=== PATIENT | female | born 1970 | race Two or more races ===

== ENCOUNTER 2016-08-16 21:53 | Emergency (ER) | payer OTHER ==
[~2016-08-16] VITALS: Ht 157.5 cm; Wt 64.4 kg
[~2016-08-16 21:53] MED LIST: KEFLEX500 MG ORAL; METRONIDAZOLE500 MG ORAL; PEPCID40 MG PO; RANITIDINE HCL150 MG ORAL; ZOFRAN4 MG ORAL
[2016-08-16 23:00] VITALS: BP 135/78
[2016-08-17 00:49] LABS: APPEARANCE,URINE CLEAR; KETONES,URINE NEGATIVE (NEGATIVE); LEUKOCYTE ESTERASE ,URINE NEGATIVE (NEGATIVE); NITRITE,URINE NEGATIVE (NEGATIVE); PH,URINE 6.5 (4.5-8.0); PROTEIN,URINE NEGATIVE (NEGATIVE); UROBILINOGEN,URINE NORMAL MG/DL (0.0-1.0)
[2016-08-17 00:59] LABS: SQUAMOUS EPITHELIAL CELL,UR FEW /LPF (NONE/OCC); WBC,URINE 0-2 /HPF (0 - 2)
[2016-08-17] MEDS ORDERED: ZOFRAN4 MG ORAL (01:22)
--- NOTE | 2016-08-17 01:23 | Emergency Room Report ---
History of Present Illness General Chief Complaint: Abdominal Pain Source: Patient Present Illness HPI Is a 46-year-old female who has she complaining of nausea for the last 2-3 days. She thinks this is after she ate some fish at a family dinner. She said that the house smelled like bleach. Since then she felt nauseous after she. No pain. No diarrhea. No vomiting. Denies any other complaint. No urinary complaint. She is not sexually active. Allergies: Coded Allergies: No Known Allergies (Unverified , 12/24/14) Patient History Past Medical History: see triage record, old chart reviewed Past Surgical History: other Pertinent Family History: none Social History: Denies: smoking Last Menstrual Period: A WEEK AND HALF AGO Now: No Immunizations: other Reviewed Nursing Documentation: PMH: Agreed, PSxH: Agreed Nursing Documentation-PM Past Medical History: No Stated History Review of Systems Eye: Denies: blurred vision, eye pain ENT: Denies: ear pain, nose congestion, throat swelling Respiratory: Denies: cough, shortness of breath Cardiovascular: Denies: chest pain, palpitations Gastrointestinal: Reports: nausea, Denies: abdominal pain, diarrhea, vomiting Musculoskeletal: Denies: back pain, joint pain Skin: Denies: rash Neurological: Denies: headache, numbness Endocrine: Denies: increased thirst, increased urine Hematologic/Lymphatic: Denies: easy bruising All Other Systems: negative except mentioned in HPI Physical Exam Vital Signs Date Time Temp Pulse Resp B/P Pulse Ox O2 Delivery O2 Flow Rate FiO2 08/16/16 22:51 97.3 65 18 167/77 95 Room Air vitals with high blood pressure Sp02 EP Interpretation: reviewed, normal General Appearance: well appearing, no apparent distress, alert Head: normocephalic, atraumatic Eyes: bilateral eye EOMI, bilateral eye PERRL ENT: hearing grossly normal, normal pharynx Neck: full range of motion, supple, no meningismus Respiratory: chest non-tender, lungs clear, normal breath sounds Cardiovascular #1: regular rate, rhythm, no murmur Gastrointestinal: normal bowel sounds, non tender, no mass, no organomegaly, no bruit, non-distended Musculoskeletal: back normal, gait/station normal, normal range of motion Psychiatric: mood/affect normal Skin: warm/dry Medical Decision Making Diagnostic Impression: Primary Impression: Nausea ER Course She presents with nausea. Abdominal exam is benign. She has no urinary complaint. My bedside ultrasound her gallbladder is negative. Negative Bledsoe sign. She has no other symptoms related to cardiac. We'll discharge home. This may be a beginning of a viral enteritis. Last Vital Signs Date Time Temp Pulse Resp B/P Pulse Ox O2 Delivery O2 Flow Rate FiO2 08/16/16 23:00 75 18 135/78 100 Room Air 08/16/16 22:51 97.3 Status: improved Disposition: HOME, SELF-CARE Condition: Stable Scripts Ondansetron (Zofran) 4 Mg Tablet 4 MG ORAL Q6H Y for Nausea & Vomiting, #10 TAB 0 Refills Prov: ARCENIO CANNON M.D. 08/17/16 Referrals: NON PHYSICIAN (PCP) Additional Instructions: Followup with your DrRaven in 2-3 days. Return if symptom worsen. ARCENIO CANNON M.D. Aug 17, 2016 01:23
[2016-08-17 01:55] VITALS: BP 126/70
== END 2016-08-17 01:55 | disposition home or self-care (01) ==
LOC: EMR 22:30
DX: R11.0 Nausea (principal)
CPT/HCPCS: 81003; 81025; 99283

== ENCOUNTER 2016-11-18 07:27 | Emergency (ER) | payer SELFPAY ==
[~2016-11-18] VITALS: Ht 157.5 cm; Wt 64.4 kg
[2016-11-18 08:21] VITALS: BP 120/83
[2016-11-18 08:27] LABS: APPEARANCE,URINE CLEAR; KETONES,URINE NEGATIVE (NEGATIVE); LEUKOCYTE ESTERASE ,URINE 1+ (NEGATIVE); NITRITE,URINE NEGATIVE (NEGATIVE); PH,URINE 6 (4.5-8.0); PROTEIN,URINE NEGATIVE (NEGATIVE); UROBILINOGEN,URINE NORMAL MG/DL (0.0-1.0)
[2016-11-18 09:13] LABS: BACTERIA,URINE FEW /HPF; SQUAMOUS EPITHELIAL CELL,UR FEW /LPF (NONE/OCC)
--- NOTE | 2016-11-18 09:35 | Emergency Room Report ---
History of Present Illness General Chief Complaint: Female Urogenital Problems Source: Patient Present Illness HPI This patient states that she has had a foul odor to her vaginal discharge. States that it smelled stronger than usual. She states that her urine also smelled stronger than usual. She denies pelvic pain. She states that her vaginal discharge is more yellow than usual. She denies dysuria or hematuria. She denies irregular menstrual bleeding. The patient states she is not sexually active and has not had sexual intercourse for many months. She states that a sexual transmitted diseases not a possibility. She denies fever or chills. She denies nausea or vomiting. She denies abdominal pain. She does have an appointment with her primary care physician and is getting referred to a inspector purchased parts. She has no other complaints. Allergies: Coded Allergies: No Known Allergies (Unverified , 12/24/14) Patient History Past Medical History: see triage record Social History: Denies: smoking, alcohol use, drug use Last Menstrual Period: 10/20/16 Now: No Reviewed Nursing Documentation: PMH: Agreed, PSxH: Agreed Review of Systems All Other Systems: negative except mentioned in HPI Physical Exam Vital Signs Date Time Temp Pulse Resp B/P (MAP) Pulse Ox O2 Delivery O2 Flow Rate FiO2 11/18/16 07:53 98.1 72 18 118/70 99 Room Air Sp02 EP Interpretation: reviewed, normal General Appearance: no apparent distress, alert, GCS 15, non-toxic Head: normocephalic, atraumatic Eyes: bilateral eye normal inspection, bilateral eye PERRL ENT: hearing grossly normal, normal pharynx, no angioedema, normal voice Neck: full range of motion, supple/symm/no masses Respiratory: chest non-tender, lungs clear, normal breath sounds, speaking full sentences Cardiovascular #1: regular rate, rhythm, no edema Gastrointestinal: normal bowel sounds, non tender, soft, non-distended, no guarding, no rebound Rectal: deferred Genitourinary: normal inspection, no CVA tenderness, adnexa normal, cervix normal, ext genitalia/vag normal, uterus normal, other - cervix normal with no CMT. Normal vaginal discharge. No odor noted. Musculoskeletal: back normal, gait/station normal, normal range of motion, non- tender Neurologic: alert, oriented x3, responsive, motor strength/tone normal, sensory intact, speech normal Psychiatric: judgement/insight normal, memory normal, mood/affect normal, no suicidal/homicidal ideation Skin: normal color, no rash, warm/dry, well hydrated Medical Decision Making Diagnostic Impression: Primary Impression: Hematuria ER Course This patient complains of abnormal odor that she is unsure if is from her vaginal discharge or from her urine. The patient's pelvic exam was normal. The patient's discharge was normal appearing without odor. The wet prep done and microbiology showed no evidence of clue cells, yeast or Trichomonas. On physical exam and wet prep there is no evidence of bacterial vaginosis. Patient 's urinalysis has a small amount of blood that could be a normal variant. Regardless, I did educate the patient about the hematuria. There is no evidence of urinary tract infection. I do not feel antibiotics are indicated as this would likely only causes side effects and resistance to given there is no evidence of a urinary tract infection. The patient evaluation is reassuring. Pelvic exam is normal. The patient is nontoxic. Patient does not have a history that would be concerning for sexually transmitted disease and has a normal pelvic exam without any cervical motion tenderness. At this time, I did not identify an emergency medical condition. The patient has planned followup with inspector purchased parts and her primary care physician. She is given return precautions and followup instructions. Laboratory Tests Test 11/18/16 07:50 Urine Color Pale yellow Urine Appearance Clear Urine pH 6 (4.5-8.0) Urine Specific [place] 1.015 (1.005-1.035) Urine Protein Negative (NEGATIVE) Urine Glucose (UA) Negative (NEGATIVE) Urine Ketones Negative (NEGATIVE) Urine Occult Blood 4+ (NEGATIVE) H Urine Nitrite Negative (NEGATIVE) Urine Bilirubin Negative (NEGATIVE) Urine Urobilinogen Normal MG/DL (0.0-1.0) Urine Leukocyte Esterase 1+ (NEGATIVE) H Urine RBC 5-10 /HPF (0 - 2) H Urine WBC 2-4 /HPF (0 - 2) Urine Squamous Epithelial Cells Few /LPF (NONE/OCC) Urine Bacteria Few /HPF (NONE) Urine HCG, Qualitative Negative Microbiology Date/Time Source Procedure Growth Status 11/18/16 09:15 Vaginal Wet Prep - Final Complete Last Vital Signs Date Time Temp Pulse Resp B/P (MAP) Pulse Ox O2 Delivery O2 Flow Rate FiO2 11/18/16 08:21 98.1 58 18 120/83 99 Room Air Disposition: HOME, SELF-CARE Condition: Stable Referrals: NON PHYSICIAN (PCP) ROSALINE ZELAYA D.O. Nov 18, 2016 09:35
[2016-11-18 09:49] VITALS: BP 118/80
== END 2016-11-18 09:53 | disposition home or self-care (01) ==
LOC: EMR 08:24
DX: R31.9 Hematuria, unspecified (principal); N89.8 Other specified noninflammatory disorders of vagina
CPT/HCPCS: 81003; 81025; 87210; 99283

== ENCOUNTER 2017-06-14 06:11 | Emergency (ER) | payer OTHER ==
[~2017-06-14] VITALS: Ht 157.5 cm; Wt 64.9 kg
[2017-06-14] MEDS ORDERED: Sodium Chloride 500ML 500 ML IV ONE (07:00)
[2017-06-14 07:02] LABS: APPEARANCE,URINE CLEAR; BILIRUBIN, URINE NEGATIVE (NEGATIVE); COLOR,URINE PALE YELLOW; GLUCOSE, URINE (UA) NEGATIVE (NEGATIVE); KETONES,URINE NEGATIVE (NEGATIVE); LEUKOCYTE ESTERASE ,URINE NEGATIVE (NEGATIVE); NITRITE,URINE NEGATIVE (NEGATIVE); PH,URINE 7 (4.5-8.0); PROTEIN,URINE NEGATIVE (NEGATIVE); UROBILINOGEN,URINE NORMAL MG/DL (0.0-1.0)
[2017-06-14 07:09] VITALS: BP 135/69
[2017-06-14] MEDS ORDERED: NKM (07:11)
[2017-06-14 07:29] LABS: BASOPHILS % (AUTO) 1.2 % (0.0-2.0); EOSINOPHILS % (AUTO) 0.9 % (0.0-3.0); HEMOGLOBIN 13.5 G/DL (12.0-16.0); LYMPHOCYTES % (AUTO) 15.1 % (20.0-45.0); MEAN CORPUSCULAR VOLUME 93 FL (80-99); MONOCYTES % (AUTO) 9.5 % (1.0-10.0); NEUTROPHILS % (AUTO) 73.3 % (45.0-75.0); PLATELET COUNT 246 K/UL (150-450); RED BLOOD COUNT 4.07 M/UL (4.20-5.40); RED CELL DISTRIBUTION WIDTH 11.9 % (11.6-14.8); WHITE BLOOD COUNT 11.1 K/UL (4.8-10.8)
[2017-06-14 07:40] LABS: ANION GAP 8 mmol/L (5-15); BLOOD UREA NITROGEN 14 mg/dL (7-18); CALCIUM 9.1 MG/DL (8.5-10.1); CARBON DIOXIDE 28 MMOL/L (21-32); CHLORIDE 104 MMOL/L (98-107); CREATININE 0.6 MG/DL (0.55-1.30); POTASSIUM 3.6 MMOL/L (3.5-5.1); SODIUM 140 MMOL/L (136-145)
[2017-06-14 07:45] LABS: ALANINE AMINOTRANSFERASE 36 U/L (12-78); ALBUMIN/GLOBULIN RATIO 0.9 (1.0-2.7); ALKALINE PHOSPHATASE 84 U/L (46-116); ASPARTATE AMINO TRANSFERASE 13 U/L (15-37); BILIRUBIN,TOTAL 0.7 MG/DL (0.2-1.0)
[2017-06-14] MEDS ORDERED: metroNIDAZOLE 500mg tab ORAL ONE (09:00)
[2017-06-14] MEDS ORDERED: Ciprofloxacin 500mg tab ORAL ONE (09:00)
[2017-06-14] MEDS ORDERED: METRONIDAZOLE500 MG ORAL (09:08)
[2017-06-14] MEDS ORDERED: ACETAMINOPHEN-1 EAC1 ORAL (09:08)
[2017-06-14] MEDS ORDERED: CIPROFLOXACIN500 M2 ORAL (09:08)
[2017-06-14 09:17] VITALS: BP 143/72
--- NOTE | 2017-06-14 09:28 | Emergency Room Report ---
History of Present Illness General Chief Complaint: Abdominal Pain Source: Patient Present Illness HPI 47-year-old female presents ED for evaluation. Patient complaining of lower abdominal pain for the last 4 days. Pain is dull, 7 out of 10, nonradiating. Notes some dysuria. Denies hematuria. Denies flank pain. Denies fevers or chills. Denies nausea or vomiting. No other aggravating relieving factors. Denies any other associated symptoms Allergies: Coded Allergies: No Known Allergies (Unverified , 06/14/17) Patient History Past Medical History: none Past Surgical History: none Pertinent Family History: none Social History: Denies: smoking, alcohol use, drug use Last Menstrual Period: 03/2017 Now: No Immunizations: UTD Reviewed Nursing Documentation: PMH: Agreed; PSxH: Agreed Nursing Documentation-PMH Past Medical History: No History, Except For Review of Systems All Other Systems: negative except mentioned in HPI Physical Exam Vital Signs Date Time Temp Pulse Resp B/P (MAP) Pulse Ox O2 Delivery O2 Flow Rate FiO2 06/14/17 06:20 99.5 78 16 144/91 96 Room Air 99.5 Sp02 EP Interpretation: reviewed, normal General Appearance: no apparent distress, alert, GCS 15, non-toxic Head: normocephalic, atraumatic Eyes: bilateral eye normal inspection, bilateral eye PERRL ENT: hearing grossly normal, normal pharynx, no angioedema, normal voice Neck: full range of motion, supple/symm/no masses Respiratory: chest non-tender, lungs clear, normal breath sounds, speaking full sentences Cardiovascular #1: regular rate, rhythm, no edema Cardiovascular #2: 2+ carotid (R), 2+ carotid (L), 2+ radial (R), 2+ radial (L) , 2+ dorsalis pedis (R), 2+ dorsalis pedis (L) Gastrointestinal: normal bowel sounds, soft, non-distended, no guarding, no rebound, tenderness - lower abdomen Rectal: deferred Genitourinary: normal inspection, no CVA tenderness Musculoskeletal: back normal, gait/station normal, normal range of motion, non- tender Neurologic: alert, oriented x3, responsive, motor strength/tone normal, sensory intact, speech normal Psychiatric: judgement/insight normal, memory normal, mood/affect normal, no suicidal/homicidal ideation Reflexes: 3+ bicep (R), 3+ bicep (L), 3+ tricep (R), 3+ tricep (L), 3+ knee (R) , 3+ knee (L) Skin: normal color, no rash, warm/dry, well hydrated Lymphatic: no adenopathy Medical Decision Making Diagnostic Impression: Primary Impression: Diverticulitis ER Course Hospital Course 47-year-old F presents to ED with lower abdominal pain Differential diagnoses include: appendicitis, diverticulitis, SBO, gastroenteritis Clinical course Patient placed on stretcher. vfx artist. After initial history and physical I ordered labs, IV fluids, UA, pain medication and CT scan Labs - minimal leukocytosis, Hb/Hct stable. electrolytes ok. UA + blood, few bacteria CT abdomen and pelvis - diverticulitis no perofration/abscess given that patient appears nontoxic with normal labs and tolerating oral intake I believe patient be safely discharged with antibiotic prescriptions Discussed findings with patient. Given Cipro, Flagyl here I feel this is a highly complex case requiring extensive working including EKG/ Rhythm strip, Xray/CT/US, Blood/urine lab work, repeat exams while in ED, and administration of strong opiates/narcotics for pain control, admission to hospital or close patient follow up. Diagnosis - divertculitis stable and discharged to home with prescription for Cipro and Flagyl, Tylenol # 3. Followup with PMD. Return to ED if symptoms recur or worsen Labs Test 06/14/17 06:30 06/14/17 07:00 Urine Color Pale yellow Urine Appearance Clear Urine pH 7 (4.5-8.0) Urine Specific [place] 1.010 (1.005-1.035) Urine Protein Negative (NEGATIVE) Urine Glucose (UA) Negative (NEGATIVE) Urine Ketones Negative (NEGATIVE) Urine Occult Blood 4+ (NEGATIVE) Urine Nitrite Negative (NEGATIVE) Urine Bilirubin Negative (NEGATIVE) Urine Urobilinogen Normal MG/DL (0.0-1.0) Urine Leukocyte Esterase Negative (NEGATIVE) Urine RBC 5-10 /HPF (0 - 2) Urine WBC 0-2 /HPF (0 - 2) Urine Squamous Epithelial Cells Occasional /LPF Urine Bacteria Occasional /HPF (NONE) Urine HCG, Qualitative Negative (NEGATIVE) White Blood Count 11.1 K/UL (4.8-10.8) Red Blood Count 4.07 M/UL (4.20-5.40) Hemoglobin 13.5 G/DL (12.0-16.0) Hematocrit 38.0 % (37.0-47.0) Mean Corpuscular Volume 93 FL (80-99) Mean Corpuscular Hemoglobin 33.1 PG (27.0-31.0) Mean Corpuscular Hemoglobin Concent 35.5 G/DL (32.0-36.0) Red Cell Distribution Width 11.9 % (11.6-14.8) Platelet Count 246 K/UL (150-450) Mean Platelet Volume 8.6 FL (6.5-10.1) Neutrophils (%) (Auto) 73.3 % (45.0-75.0) Lymphocytes (%) (Auto) 15.1 % (20.0-45.0) Monocytes (%) (Auto) 9.5 % (1.0-10.0) Eosinophils (%) (Auto) 0.9 % (0.0-3.0) Basophils (%) (Auto) 1.2 % (0.0-2.0) Sodium Level 140 MMOL/L (136-145) Potassium Level 3.6 MMOL/L (3.5-5.1) Chloride Level 104 MMOL/L (98-107) Carbon Dioxide Level 28 MMOL/L (21-32) Anion Gap 8 mmol/L (5-15) Blood Urea Nitrogen 14 mg/dL (7-18) Creatinine 0.6 MG/DL (0.55-1.30) Estimat Glomerular Filtration Rate > 60 mL/min (>60) Glucose Level 113 MG/DL (74-106) Calcium Level 9.1 MG/DL (8.5-10.1) Total Bilirubin 0.7 MG/DL (0.2-1.0) Aspartate Amino Transf (AST/SGOT) 13 U/L (15-37) Alanine Aminotransferase (ALT/SGPT) 36 U/L (12-78) Alkaline Phosphatase 84 U/L (46-116) Total Protein 8.3 G/DL (6.4-8.2) Albumin 4.0 G/DL (3.4-5.0) Globulin 4.3 g/dL Albumin/Globulin Ratio 0.9 (1.0-2.7) Lipase 239 U/L (73-393) CT/MRI/US Diagnostic Results CT/MRI/US Diagnostic Results : Imaging Test Ordered: CT A/P Impression acute diverticulitis. no perforation or abscess Last Vital Signs Date Time Temp Pulse Resp B/P (MAP) Pulse Ox O2 Delivery O2 Flow Rate FiO2 06/14/17 09:17 74 20 143/72 99 Room Air 06/14/17 07:09 99.9 99.9 Status: improved Disposition: HOME, SELF-CARE Condition: Stable Scripts Acetaminophen With Codeine (T#3) (TYLENOL #3 TAB*) Y Tab 1 TAB ORAL Q8H PRN for For Pain, #20 TAB Prov: Jordy Maza MD 06/14/17 Metronidazole* (FLAGYL*) 500 Mg Tablet 500 MG ORAL THREE TIMES A DAY, #21 TAB Prov: Jordy Maza MD 06/14/17 Ciprofloxacin Hcl* (CIPROFLOXACIN HCL*) 500 Mg Tablet 500 MG ORAL Q12H, #14 TAB 0 Refills Prov: Jordy Maza MD 06/14/17 Patient Instructions: Diverticulitis, [id number] Jordy Maza MD June 14, 2017 09:28
== END 2017-06-14 09:18 | disposition home or self-care (01) ==
LOC: EMR 06:35
DX: K57.92 Diverticulitis of intestine, part unspecified, without perforation or abscess without bleeding (principal)
CPT/HCPCS: 36415; 74177; 80053; 81003; 81025; 83690; 85025; 96360; 96374; 99284; J7040; Q9967; S0028

== ENCOUNTER 2018-05-04 08:46 | Inpatient (IN) | payer MEDICAID, OTHER ==
[~2018-05-04] VITALS: Ht 157.5 cm; Wt 68.9 kg
[~2018-05-04 08:46] MED LIST changes: +ACETAMINOPHEN-1 EAC1 ORAL; +CIPROFLOXACIN500 M2 ORAL; +NKM
[2018-05-04] MEDS ORDERED: Isovue-300 100ml vial INJ PRN (09:00)
--- NOTE | 2018-05-04 09:10 | NUR ---
ED Nurse Note: pt denies nausea vomiting and diarhea. with new order from ermd and carried out, blood drawn and pt able to give urine specimen and was sent to lab. will continue to monitor.
--- NOTE | 2018-05-04 09:10 | NUR ---
ED Nurse Note: pt walked in due to lower abdominal pain x 4 days. pt stated 08/19 pain/
[2018-05-04 09:17] VITALS: BP 163/84
--- NOTE | 2018-05-04 09:21 | NUR ---
ED Nurse Note: pt went to ultrasound with tech.
[2018-05-04 09:31] LABS: BASOPHILS % (AUTO) 1.4 % (0.0-2.0); EOSINOPHILS % (AUTO) 1.6 % (0.0-3.0); HEMATOCRIT 39.5 % (37.0-47.0); HEMOGLOBIN 12.8 G/DL (12.0-16.0); MEAN CORPUSCULAR VOLUME 93 FL (80-99); MONOCYTES % (AUTO) 8.5 % (1.0-10.0); NEUTROPHILS % (AUTO) 53.5 % (45.0-75.0); PLATELET COUNT 252 K/UL (150-450); RED BLOOD COUNT 4.26 M/UL (4.20-5.40); RED CELL DISTRIBUTION WIDTH 12.3 % (11.6-14.8); WHITE BLOOD COUNT 7.5 K/UL (4.8-10.8)
--- NOTE | 2018-05-04 09:31 | Emergency Room Report ---
History of Present Illness General Chief Complaint: Abdominal Pain Source: Patient Present Illness HPI This patient complains of lower abdominal pain for the past 4 days. She states she was treated for urinary tract infection 3 weeks ago. She states that she went back to full duty at her job. She states that during that time she strained her back and has had intermittent low back pain. She denies nausea or vomiting. She denies fever or chills. She denies chest pain or shortness of breath. She denies dysuria or hematuria. She denies abnormal vaginal discharge. She states she is not sexually active. She has no other complaints. Allergies: Coded Allergies: No Known Allergies (Unverified , 05/04/18) Patient History Past Medical History: none, see triage record Social History: Denies: smoking, alcohol use, drug use Last Menstrual Period: Feb 2018 Reviewed Nursing Documentation: PMH: Agreed; PSxH: Agreed Nursing Documentation-PMH Past Medical History: No History, Except For Review of Systems All Other Systems: negative except mentioned in HPI Physical Exam Vital Signs Date Time Temp Pulse Resp B/P (MAP) Pulse Ox O2 Delivery O2 Flow Rate FiO2 05/04/18 08:52 98.4 71 16 163/84 98 Room Air Sp02 EP Interpretation: reviewed, normal General Appearance: no apparent distress, alert, GCS 15, non-toxic Head: normocephalic, atraumatic Eyes: bilateral eye normal inspection, bilateral eye PERRL ENT: hearing grossly normal, normal pharynx, no angioedema, normal voice Neck: full range of motion, supple/symm/no masses Respiratory: chest non-tender, lungs clear, normal breath sounds, no respiratory distress, no retraction, no accessory muscle use, speaking full sentences Cardiovascular #1: regular rate, rhythm, no edema Gastrointestinal: normal bowel sounds, soft, non-distended, no guarding, no rebound, tenderness - TTP suprapubicly Rectal: deferred Musculoskeletal: gait/station normal, normal range of motion, tender - TTP over the paraspinal m. of lumbar spine. Neurologic: alert, oriented x3, responsive, motor strength/tone normal, sensory intact, speech normal Psychiatric: judgement/insight normal, memory normal, mood/affect normal, no suicidal/homicidal ideation Skin: normal color, no rash, warm/dry, well hydrated Medical Decision Making Diagnostic Impression: Primary Impression: Acute renal failure (ARF) ER Course This patient has acute renal failure. I'm uncertain of the etiology. Possibilities include a glomerulonephritis. Also possible is that this patient had an obstructing stone that she has since passed. Patient's CT of the abdomen and pelvis only showed a stone inside the kidney. Otherwise the CT was unremarkable. There is no evidence of ongoing infection. The patient will be admitted for acute renal failure and further evaluation by nephrology. Laboratory Tests Test 05/04/18 09:12 White Blood Count 7.5 K/UL (4.8-10.8) Red Blood Count 4.26 M/UL (4.20-5.40) Hemoglobin 12.8 G/DL (12.0-16.0) Hematocrit 39.5 % (37.0-47.0) Mean Corpuscular Volume 93 FL (80-99) Mean Corpuscular Hemoglobin 30.0 PG (27.0-31.0) Mean Corpuscular Hemoglobin Concent 32.4 G/DL (32.0-36.0) Red Cell Distribution Width 12.3 % (11.6-14.8) Platelet Count 252 K/UL (150-450) Mean Platelet Volume 7.9 FL (6.5-10.1) Neutrophils (%) (Auto) 53.5 % (45.0-75.0) Lymphocytes (%) (Auto) 35.0 % (20.0-45.0) Monocytes (%) (Auto) 8.5 % (1.0-10.0) Eosinophils (%) (Auto) 1.6 % (0.0-3.0) Basophils (%) (Auto) 1.4 % (0.0-2.0) Urine Color Pale yellow Urine Appearance Clear Urine pH 6 (4.5-8.0) Urine Specific [place] 1.015 (1.005-1.035) Urine Protein Negative (NEGATIVE) Urine Glucose (UA) Negative (NEGATIVE) Urine Ketones Negative (NEGATIVE) Urine Blood 4+ (NEGATIVE) H Urine Nitrite Negative (NEGATIVE) Urine Bilirubin Negative (NEGATIVE) Urine Urobilinogen Normal MG/DL (0.0-1.0) Urine Leukocyte Esterase Negative (NEGATIVE) Urine RBC 2-4 /HPF (0 - 2) H Urine WBC 0 /HPF (0 - 2) Urine Squamous Epithelial Cells Occasional /LPF Urine Bacteria Occasional /HPF (NONE) Urine HCG, Qualitative Negative (NEGATIVE) Sodium Level 141 MMOL/L (136-145) Potassium Level 3.6 MMOL/L (3.5-5.1) Chloride Level 102 MMOL/L (98-107) Carbon Dioxide Level 30 MMOL/L (21-32) Anion Gap 9 mmol/L (5-15) Blood Urea Nitrogen 11 mg/dL (7-18) Creatinine 2.5 MG/DL (0.55-1.30) H Estimate Glomerular Filtration Rate 20.6 mL/min (>60) Glucose Level 102 MG/DL (74-106) Calcium Level 9.7 MG/DL (8.5-10.1) Total Bilirubin 0.5 MG/DL (0.2-1.0) Aspartate Amino Transferase (AST) 17 U/L (15-37) Alanine Aminotransferase (ALT) 33 U/L (12-78) Alkaline Phosphatase 92 U/L (46-116) Total Protein 8.4 G/DL (6.4-8.2) H Albumin 4.1 G/DL (3.4-5.0) Globulin 4.3 g/dL Albumin/Globulin Ratio 1.0 (1.0-2.7) Lipase 354 U/L (73-393) Human Chorionic Gonadotropin, Quant 1 mIU/mL (1-6) CT/MRI/US Diagnostic Results CT/MRI/US Diagnostic Results : Imaging Test Ordered: CT abd/pelvis, US pelvis Impression No acute findings on CT of the abdomen and pelvis and ultrasound of the pelvis. See these official reports in the electronic medical record. Last Vital Signs Date Time Temp Pulse Resp B/P (MAP) Pulse Ox O2 Delivery O2 Flow Rate FiO2 05/04/18 09:17 98.4 71 16 163/84 98 Room Air Disposition: ADMITTED INPATIENT Condition: Serious Referrals: NON PHYSICIAN (PCP) Velma Skinner DO May 04, 2018 09:31
[2018-05-04 09:32] LABS: APPEARANCE,URINE CLEAR; BILIRUBIN, URINE NEGATIVE (NEGATIVE); COLOR,URINE PALE YELLOW; GLUCOSE, URINE (UA) NEGATIVE (NEGATIVE); KETONES,URINE NEGATIVE (NEGATIVE); LEUKOCYTE ESTERASE ,URINE NEGATIVE (NEGATIVE); NITRITE,URINE NEGATIVE (NEGATIVE); PH,URINE 6 (4.5-8.0); PROTEIN,URINE NEGATIVE (NEGATIVE); UROBILINOGEN,URINE NORMAL MG/DL (0.0-1.0)
[2018-05-04 09:43] LABS: ANION GAP 9 mmol/L (5-15); BLOOD UREA NITROGEN 11 mg/dL (7-18); CALCIUM 9.7 MG/DL (8.5-10.1); CARBON DIOXIDE 30 MMOL/L (21-32); CHLORIDE 102 MMOL/L (98-107); CREATININE 2.5 MG/DL (0.55-1.30); POTASSIUM 3.6 MMOL/L (3.5-5.1); SODIUM 141 MMOL/L (136-145)
[2018-05-04 09:49] LABS: ALANINE AMINOTRANSFERASE 33 U/L (12-78); ALBUMIN 4.1 G/DL (3.4-5.0); ALKALINE PHOSPHATASE 92 U/L (46-116); ASPARTATE AMINO TRANSFERASE 17 U/L (15-37); BILIRUBIN,TOTAL 0.5 MG/DL (0.2-1.0)
--- NOTE | 2018-05-04 10:50 | NUR ---
ED Nurse Note: pt went back from ultrasound.
[2018-05-04 11:17] VITALS: BP 144/82
--- NOTE | 2018-05-04 13:30 | NUR ---
ED Nurse Note: pt is admitted in the hospital. report given to luis e urias.
[2018-05-04 14:09] VITALS: BP 134/80
--- NOTE | 2018-05-04 15:14 | History & Physical ---
History and Physical History & Physicial HP dictated # [id number] Gucci Wisdom MD May 04, 2018 15:14
[2018-05-04] MEDS ORDERED: Milk of Magnesia 30ml Ud ORAL PRN (15:15)
[2018-05-04] MEDS ORDERED: Morphine Sulfate 2mg/ml Inj(IV/IM USE ONLY) IVP PRN (15:15)
[2018-05-04] MEDS ORDERED: Zolpidem 5mg tab ORAL PRN (15:15)
--- NOTE | 2018-05-04 15:45 | NUR ---
NURSE NOTES: Received telephone report from Racquel RN at 1521. Patient arrived to unit at 1540 via gurney with office machine technician. Patient is awake alert and oriented x4, no acute distress noted. Patient reporting no pain at this time. IV intact and asymptomatic. Patient oriented to room and unit policies. Side rails upx2, bed low and locked, call light in reach. Will continue to monitor.
[2018-05-04 16:00] VITALS: BP 146/85
--- NOTE | 2018-05-04 19:45 | NUR ---
NURSE NOTES: Pt lying in bed w/bed in lowest position and call light within reach. Pt A&Ox4, VSS, and in no apparent distress at this time. IV site intact/asymptomatic w/IVF @ 100 ml/hr and skin intact; pt denies any pain at this time. Will continue to monitor.
--- NOTE | 2018-05-04 19:50 | NUR ---
HAND-OFF: Report given to Chuckie LEYVA. Patient is in stable condition.
[2018-05-04 20:00] VITALS: BP 155/91
[2018-05-05] VITALS: BP 135/88
[2018-05-05 04:00] VITALS: BP 125/80
--- NOTE | 2018-05-05 07:15 | NUR ---
HAND-OFF: Report given to GORDON Reddy.
--- NOTE | 2018-05-05 07:25 | NUR ---
NURSE NOTES: WALKING ROUNDS DONE WITH OUTGOING RN. PATIENT AWAKE IN BED. QUESTIONS ANSWERED.NEEDS MET. DISCUSSED PLAN OF CARE FOR THE DAY.VERBALIZED UNDERSTANDING. CALL LIGHT WITHIN REACH. BED IN LOW AND LOCKED POSITION.
[2018-05-05 08:00] VITALS: BP 130/70
[2018-05-05 08:22] LABS: ALANINE AMINOTRANSFERASE 30 U/L (12-78); ALBUMIN 3.8 G/DL (3.4-5.0); ALBUMIN/GLOBULIN RATIO 0.9 (1.0-2.7); ALKALINE PHOSPHATASE 91 U/L (46-116); ANION GAP 10 mmol/L (5-15); ASPARTATE AMINO TRANSFERASE 17 U/L (15-37); BILIRUBIN,TOTAL 0.8 MG/DL (0.2-1.0); BLOOD UREA NITROGEN 11 mg/dL (7-18); CALCIUM 9.4 MG/DL (8.5-10.1); CARBON DIOXIDE 28 MMOL/L (21-32); CHLORIDE 103 MMOL/L (98-107); CHOLESTEROL 229 MG/DL (< 200); CREATININE 0.6 MG/DL (0.55-1.30); HDL CHOLESTEROL 54 MG/DL (40-60); POTASSIUM 3.4 MMOL/L (3.5-5.1); SODIUM 141 MMOL/L (136-145); TRIGLYCERIDES 130 MG/DL (30-150)
[2018-05-05 11:56] VITALS: BP 135/77
--- NOTE | 2018-05-05 12:31 | General Progress Note ---
Assessment/Plan Problem List: (1) Acute renal failure (ARF) Assessment & Plan: resolved. lab error ? ICD Codes: N17.9 - Acute kidney failure, unspecified SNOMED: 07232418 (2) Microscopic hematuria ICD Codes: R31.29 - Other microscopic hematuria SNOMED: 533501614 Status Narrative Patient's acute renal failure has resolved completely. The question is if the initial labs were was correct. The other possibility is the patient had some prerenal azotemia which improved with IV fluid. Patient will be discharged today. She still has some back issues and is asking if she can be off work. Patient was told to follow-up with her primary medical doctor. She was told to take Tylenol or ibuprofen [id number] for pain Subjective Allergies: Coded Allergies: No Known Allergies (Unverified , 05/04/18) Subjective Patient feels better Objective Last 24 Hour Vital Signs Date Time Temp Pulse Resp B/P (MAP) Pulse Ox O2 Delivery O2 Flow Rate FiO2 05/05/18 11:56 99.5 73 20 135/77 (96) 98 05/05/18 09:00 Room Air 05/05/18 08:00 97.9 84 18 130/70 (90) 97 05/05/18 04:00 97.9 74 18 125/80 (95) 98 05/05/18 00:00 97.7 71 18 135/88 (104) 98 05/04/18 21:00 Room Air 05/04/18 20:00 98.2 73 18 155/91 (112) 98 05/04/18 16:00 99.1 88 17 146/85 (105) 96 05/04/18 16:00 Room Air 05/04/18 14:09 76 12 134/80 100 Room Air 05/04/18 13:30 98.0 96 22 144/82 100 Room Air Intake and Output 05/04/18 05/05/18 19:00 07:00 Intake Total 2800 ml 1700 ml Balance 2800 ml 1700 ml Intake Oral 700 ml 600 ml IV Total 2100 ml 1100 ml # Voids 7 4 Laboratory Tests 05/05/18 05:40: Sodium Level 141, Potassium Level 3.4L, Chloride Level 103, Carbon Dioxide Level 28, Anion Gap 10, Blood Urea Nitrogen 11, Creatinine 0.6#, Estimat Glomerular Filtration Rate > 60, Glucose Level 103, Hemoglobin A1c 5.9, Calcium Level 9.4, Magnesium Level 1.8, Total Bilirubin 0.8, Aspartate Amino Transf (AST /SGOT) 17, Alanine Aminotransferase (ALT/SGPT) 30, Alkaline Phosphatase 91, Total Protein 8.1, Albumin 3.8, Globulin 4.3, Albumin/Globulin Ratio 0.9L, Triglycerides Level 130, Cholesterol Level 229H, LDL Cholesterol 145H, HDL Cholesterol 54, Cholesterol/HDL Ratio 4.2 Height (Feet): 5 Height (Inches): 2.00 Weight (Pounds): 152 Cardiovascular: normal rate Respiratory/Chest: lungs clear Edema: no edema noted Generalized Gucci Wisdom MD May 05, 2018 12:31
--- NOTE | 2018-05-05 13:50 | NUR ---
CASE MANAGEMENT:REVIEW 48 YR OLD FEMALE FROM HOME TO ER CC: ABDOMINAL PAIN RADIATING TO BACK SI: ACUTE RENAL FAILURE 98.4 71 16 163/84 98% ON RA CR+2.5 IS: 1L NS BOLUS CT ABDOMEN/PELVIS : TO MED/SURG INTERQUAL CRITERIA MET
--- NOTE | 2018-05-05 13:51 | History and Physical Report ---
DATE OF ADMISSION: 05/04/2018 CHIEF COMPLAINT: Abdominal pain. HISTORY OF PRESENT ILLNESS: This is a 48-year-old female, who started having some right-sided back pain about 3 or 4 days ago and then the pain was waxing and waning. Sometimes she would get pain in her lower abdomen and her legs. Finally, she came to the emergency room. She is currently not having any pain, but she was diagnosed with acute renal failure. Her creatinine was 2.5 today in absence of previous history of renal disease. Also she gets usually frequent UTIs. She had an UA and shows no protein, but to 2 to 4 rbc's per high-power field, 0 wbc's. PAST MEDICAL HISTORY: Noncontributory except UTIs. MEDICATIONS: Reviewed in the EMR. SOCIAL HISTORY: No history of smoking or alcohol abuse. 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 ALLERGIES: No known drug allergies. REVIEW OF SYSTEMS: Noncontributory. PHYSICAL EXAMINATION: GENERAL: The patient is a 48-year-old female, in no acute distress. VITAL SIGNS: Blood pressure is 134/80, pulse 76, respirations 12, temperature is 98.4. HEENT: [place] conjunctivae. Anicteric sclerae. NECK: Supple. LUNGS: Clear to auscultation. HEART: S1, S2 without murmurs or rubs. ABDOMEN: Soft, nontender. EXTREMITIES: No cyanosis, edema. LABORATORY FINDINGS: CBC shows WBC of 7500, hematocrit 39.5, hemoglobin is 12.8, platelet is 252,000. Chemistry panel shows a sodium 141, potassium 3.6, chloride 102, CO2 30, BUN is 11, creatinine 2.5. AST 17, ALT is 33. ASSESSMENT: This is a 48-year-old female, who is admitted with some back pain and abdominal pain. The question is she passed the stone. A CT abdomen was negative. She had also acute renal failure, again unclear etiology. Prerenal azotemia needs to be ruled out. There was no obstruction on the CAT scan. Acute glomerulonephritis is a possibility especially with the presence of microscopic hematuria. PLAN: The patient will be hydrated overnight. Chemistry panel will be followed tomorrow. If the patient is without symptoms, she would need to have workup for kidney disease as an outpatient. I do order an ultrasound to just to make sure that the patient does not have obstruction again and also look at the echogenicity of kidneys. The patient may need to have a kidney biopsy in the future if kidney function does not improve. Thank you very much. Gucci Wisdom M.D. DR: AMAURY JOB#: [id number] CC:
[2018-05-05] MEDS ORDERED: 1/2 NS 1000ml IV ONE (14:04)
--- NOTE | 2018-05-05 14:14 | NUR ---
NURSE NOTES: PATIENT REMAINS STABLE. SEEN BY Wilbert JJ DISCHARGE ORDER RECEIVED. PATIENT AWARE. REVIEWED DISCHARGE INSTRUCTIONS WITH PATIENT AND PROVIDED EDUCATION. VERBALIZED UNDERSTANDING. ALL BELONGINGS WITH PATIENT. DISCUSSED WIT ADMITTING MD HERE, WILL F/U WITH PCP RECOMMENDED.
--- NOTE | 2018-05-05 19:15 | Diagnostic Imaging Report ---
Indication:Elevated Bun and Creatinine. Technique: Grayscale and duplex Doppler imaging of the kidneys performed. Comparison: None Findings: The size, contour, and echogenicity of both kidneys are within normal limits. Right kidney 11.7 cm. Left kidney 12 cm. There is no hydronephrosis. The IVC and urinary bladder are unremarkable. Impression: Negative exam
--- NOTE | 2018-05-06 11:19 | Discharge Summary ---
Discharge Summary Discharge Summary _ DATE OF ADMISSION: 05/04/2018 DATE OF DISCHARGE: 05/05/2018 DISCHARGED BY: Dr. Wisdom REASON FOR ADMISSION: 48 years old female with noncontributory past medical history except frequent UTI , presented with right-sided waxing and waning back pain for 3 4 days. Occasionally pain radiated to lower abdomen and legs. Patient presented to emergency room for evaluation. Upon evaluation creatinine was 2.5. BUN 11. Stable electrolytes. No leukocytosis , stable hemoglobin and hematocrit. Urinalysis revealed +4 blood, but was negative for evidence of UTI , no protein. Urine test was negative. CT scan of the abdomen was negative for obstruction. Patient was admitted for further management. HOSPITAL COURSE: Patient admitted and started on the IV hydration Patient possibly passed stone. Acute renal failure was of unclear etiology. No obstruction on CAT scan noted. Acute glomerulonephritis was a possibility, especially with the presence of microscopic hematuria. Renal ultrasound was negative. With IV hydration , the next day creatinine from 2.5 down to 0.6. Potassium was 3.4, potassium replaced. Pain management was addressed , and pain was controlled. Lipid panel revealed elevated cholesterol 229 and elevated LDL of 145. Patient was advised on low-fat low-cholesterol diet and therapeutic lifestyle changes. Repeat lipid panel in 3 months, and if no improvement, recommended to start medical treatment with statin. Acute renal failure resolved. It was unclear, if the initial labs were correct. Patient possibly have some prerenal azotemia, which improved with IV fluid. Patient was stable for discharge. Patient was still reported some back issues. Patient was recommended to follow-up with her primary care provider. Meantime patient was recommended to take Tylenol or ibuprofen [id number] for pain as needed. Due to rapid and unexpected improvement in patient condition, patient was discharged in 1 day. FINAL DIAGNOSES: Acute renal failure-resolved Microscopic hematuria DISCHARGE MEDICATIONS: See Medication Reconciliation list. DISCHARGE INSTRUCTIONS: Patient was discharged home. Follow-up with primary care provider regarding back issues. I have been assigned to dictate discharge summary for this account. I was not involved in the patient's management. Kylie Thurman NP May 06, 2018 11:19
--- NOTE | 2018-05-07 16:46 | Diagnostic Imaging Report ---
Indication: Abdominal pain Technique: Continuous helical transaxial imaging of the abdomen and pelvis was obtained from the lung bases to the pubic symphysis. No intravenous contrast was administered. Coronal 2-D reformats were also obtained. Automatic Exposure Control was utilized. Total Dose length Product (DLP): 701.[address] Dose Index Volume (CTDIvol): 15.23 mGy Comparison: none Findings: The lung bases are clear. There is a nonobstructive stone measuring 2 mm in the lower pole the right kidney. There is no hydronephrosis. Urinary bladder is unremarkable in appearance. The appendix is normal. Few diverticula noted in the sigmoid colon. The gallbladder is unremarkable. There is no free fluid. Bilateral fallopian tube metallic implants are noted. Tiny left inguinal hernia containing fat demonstrated. Tiny umbilical hernia containing fat noted. IMPRESSION: Nonobstructive 2 mm stone in the right kidney. No hydronephrosis. Correlate clinically. Other findings including normal appendix, tiny umbilical hernia containing fat, diverticulosis of the colon, bilateral fallopian tube implants, tiny left inguinal hernia containing fat The CT scanner at [facility] is accredited by the [employer] and the scans are performed using dose optimization techniques as appropriate to a performed exam including Automatic Exposure control.
--- NOTE | 2018-05-07 16:49 | Diagnostic Imaging Report ---
Indication:Lower abdominal and pelvic pain Technique: Grayscale and duplex Doppler imaging of the pelvis performed utilizing a transabdominal and endovaginal scan. Comparison: None Findings: The size, contour, and configuration of the uterus is within normal limits. The endometrium is uniformly echogenic and normal in thickness. Endometrial thickness is about 6 mm. There is a focal calcification noted, nonspecific possibly associated with a fibroid. The uterus measures 9 x 6 x 4 cm. Left ovary is not visualized. The right ovary is seen and appears normal measuring 2.4 x 1.4 x 2.5 cm. IMPRESSION: No acute findings. Uterine calcification noted, nonspecific in nature. Left ovary not visualized.
== END 2018-05-05 14:05 | disposition home or self-care (01) | DRG 469 ==
LOC: EMR 09:10 → EDBEDREQ 14:29 → 3E 14:38
DX: N17.9 Acute kidney failure, unspecified (principal); R31.29 Other microscopic hematuria; Z87.440 Personal history of urinary (tract) infections
CPT/HCPCS: 36415; 74176; 76770; 76830; 76856; 80053; 80061; 81003; 81025; 83036; 83690; 83735; 84702; 85025; 96360; 99285; J8499

== ENCOUNTER 2018-07-15 12:56 | Emergency (ER) | payer MEDICAID ==
[~2018-07-15] VITALS: Ht 154.9 cm; Wt 71.7 kg
[2018-07-15] MEDS ORDERED: NKM (13:05)
--- NOTE | 2018-07-15 13:07 | NUR ---
ED Nurse Note: PT WALKED IN TO ER TODAY FROM HOME. AOX4. PT C/O RIGHT EAR ITCHING AND "DISCOMFORT." PT DENIES DISCHARGE, PAIN, OR DECREASE IN HEARING.
[2018-07-15 13:08] VITALS: BP 142/82
--- NOTE | 2018-07-15 13:19 | Emergency Room Report ---
History of Present Illness General Chief Complaint: Earache Source: Patient Present Illness HPI 48-year-old female with no significant past medical history here complaining of pain and pressure in her sinuses for 2 weeks and increased pruritus of right ear x2 days. Patient has been taking tspj-[id number] allergy medication with minimal relief. Patient reports that she started having sore throat a week ago. Denies cough, fever, chills, shortness of breath, chest pain, palpitation , abdominal pain nausea vomiting. Patient reports that she has been having green mucus coming out of her right nostril and feels a lot of pressure over her right sided sinuses. Allergies: Coded Allergies: No Known Allergies (Unverified , 05/04/18) Patient History Past Medical History: see triage record Past Surgical History: unable to obtain Pertinent Family History: none Now: No Immunizations: UTD Reviewed Nursing Documentation: PMH: Agreed; PSxH: Agreed Nursing Documentation-PM Past Medical History: No Stated History Hx Cardiac Problems: No Hx Cancer: No Hx Gastrointestinal Problems: No Hx Neurological Problems: No Review of Systems All Other Systems: negative except mentioned in HPI Physical Exam Vital Signs Date Time Temp Pulse Resp B/P (MAP) Pulse Ox O2 Delivery O2 Flow Rate FiO2 07/15/18 13:01 98.4 67 16 146/85 (105) 99 Room Air Sp02 EP Interpretation: reviewed, normal General Appearance: normal inspection, well appearing, no apparent distress, alert Head: normocephalic, atraumatic Eyes: bilateral eye normal inspection, bilateral eye PERRL ENT: normal pharynx, no angioedema, normal voice, TMs + canals normal, uvula midline, other - Right maxillary sinus tender to palpation Neck: normal inspection, full range of motion, supple Respiratory: normal inspection, chest non-tender, lungs clear, no rhonchi, no wheezing Cardiovascular #1: normal inspection, normal peripheral pulses, regular rate, rhythm, no murmur, normal capillary refill Gastrointestinal: normal inspection, non tender, soft Genitourinary: no CVA tenderness Musculoskeletal: normal inspection, back normal Neurologic: normal inspection, alert, oriented x3, responsive Psychiatric: normal inspection, judgement/insight normal Skin: normal inspection, normal color, no rash, warm/dry Lymphatic: normal inspection, no adenopathy Medical Decision Making PA Attestation All my diagnosis and treatment plans were reviewed ad discussed with my supervising physician Dr. Maza Diagnostic Impression: Primary Impression: Sinusitis ER Course 48-year-old female with no significant past medical history here complaining of pain and pressure in her sinuses for 2 weeks and increased pruritus of right ear x2 days. Patient has been taking kbiz-jgc-[id number] allergy medication with minimal relief. Patient reports that she started having sore throat a week ago. Denies cough, fever, chills, shortness of breath, chest pain, palpitation , abdominal pain nausea vomiting. Patient reports that she has been having green mucus coming out of her right nostril and feels a lot of pressure over her right sided sinuses. Ddx considered but are not limited to: strep pharyngitis, URI, tonsilitis, peritonsillar absacess, influneza, sinusitis Vital signs: are WNL, pt. is afebrile H&PE are most consistent with:sinusitis ORDERS: Azithromycin, Flonase ED INTERVENTIONS: None required at this time. DISCHARGE: At this time pt. is stable for d/c to home. Will provide printed patient care instructions, and any necessary prescriptions. Care plan and follow up instructions have been discussed with the patient prior to discharge. Follow with a primary care provider for referral to ENT if symptoms continue Last Vital Signs Date Time Temp Pulse Resp B/P (MAP) Pulse Ox O2 Delivery O2 Flow Rate FiO2 07/15/18 13:08 98.2 72 18 142/82 100 Room Air Disposition: HOME, SELF-CARE Condition: Stable Scripts Fluticasone Propionate (Flonase Allergy Relief) 9.9 Ml [place].susp 2 PUFFS NS BID, #1 SPRAY Prov: Aurroa Augustin 07/15/18 Azithromycin* (ZITHROMAX*) 250 Mg Tablet 250 MG ORAL DAILY, #6 TAB 0 Refills Take two tables once daily for 1 day, then one tablet once daily for 4 days. Prov: Aurora Augustin 07/15/18 Patient Instructions: Sinusitis, Adult, [id number] Additional Instructions: Take medication as directed follow-up with your primary care provider Aurora Augustin Jul 15, 2018 13:19
[2018-07-15] MEDS ORDERED: ZITHROMAX250 MG ORAL (13:21)
[2018-07-15] MEDS ORDERED: FLONASE ALLERG9.9 ML NS (13:21)
[2018-07-15 13:33] VITALS: BP 136/76
--- NOTE | 2018-07-15 13:33 | NUR ---
ED Nurse Note: PT SITTING PEACEFULLY IN BED IN NAD. AOX4. PRESCRIPTIONS AND DISCHARGE PAPERWORK EXPLAINED TO PT. PT VERBALIZES UNDERSTANDING AND ALL QUESTIONS ANSWERED. PRESCRIPTIONS AND DISCHARGE PAPERWORK GIVEN TO PT AND ID WRISTBAND REMOVED. PT WALKED OUT OF ER WITH STEADY GAIT AND ALL BELONGINGS.
== END 2018-07-15 13:33 | disposition home or self-care (01) ==
LOC: EMR 13:15
DX: J32.9 Chronic sinusitis, unspecified (principal)
CPT/HCPCS: 99282

== ENCOUNTER → 2018-08-18 | Emergency (ER) | payer MEDICAID, OTHER ==
[~2018-08-18] VITALS: Ht 157.5 cm; Wt 68.9 kg
[~2018-08-18] MED LIST changes: +FLONASE ALLERG9.9 ML NS; +ZITHROMAX250 MG ORAL
--- NOTE | 2018-08-18 13:30 | NUR ---
ED Nurse Note: Patient walked in emergency department c/o nausea that started yesterday and rectal pain x 3 days. Denies vomiting/diarrhea/constipation/blood in stool. States last BM was this morning.
[2018-08-18 13:57] VITALS: BP 155/81
--- NOTE | 2018-08-18 14:12 | NUR ---
ED Nurse Note: Patient is ambulatory with steady gait noted.
[2018-08-18 14:15] LABS: BASOPHILS % (AUTO) 1.1 % (0.0-2.0); EOSINOPHILS % (AUTO) 0.4 % (0.0-3.0); HEMATOCRIT 37.1 % (37.0-47.0); HEMOGLOBIN 12.2 G/DL (12.0-16.0); LYMPHOCYTES % (AUTO) 17.3 % (20.0-45.0); MEAN CORPUSCULAR VOLUME 96 FL (80-99); MONOCYTES % (AUTO) 6.1 % (1.0-10.0); NEUTROPHILS % (AUTO) 75.1 % (45.0-75.0); PLATELET COUNT 252 K/UL (150-450); RED BLOOD COUNT 3.86 M/UL (4.20-5.40); RED CELL DISTRIBUTION WIDTH 12.5 % (11.6-14.8); WHITE BLOOD COUNT 8.6 K/UL (4.8-10.8)
[2018-08-18 14:23] LABS: ANION GAP 12 mmol/L (5-15); BLOOD UREA NITROGEN 14 mg/dL (7-18); CALCIUM 9.5 MG/DL (8.5-10.1); CARBON DIOXIDE 26 MMOL/L (21-32); CHLORIDE 105 MMOL/L (98-107); CREATININE 0.7 MG/DL (0.55-1.30); POTASSIUM 3.4 MMOL/L (3.5-5.1); SODIUM 143 MMOL/L (136-145)
[2018-08-18 14:24] LABS: APPEARANCE,URINE CLEAR; BILIRUBIN, URINE NEGATIVE (NEGATIVE); COLOR,URINE PALE YELLOW; GLUCOSE, URINE (UA) NEGATIVE (NEGATIVE); KETONES,URINE NEGATIVE (NEGATIVE); LEUKOCYTE ESTERASE ,URINE NEGATIVE (NEGATIVE); NITRITE,URINE NEGATIVE (NEGATIVE); PH,URINE 6 (4.5-8.0); PROTEIN,URINE 1+ (NEGATIVE); UROBILINOGEN,URINE NORMAL MG/DL (0.0-1.0)
[2018-08-18 14:28] LABS: ALANINE AMINOTRANSFERASE 32 U/L (12-78); ALBUMIN 3.8 G/DL (3.4-5.0); ALBUMIN/GLOBULIN RATIO 0.9 (1.0-2.7); ALKALINE PHOSPHATASE 88 U/L (46-116); ASPARTATE AMINO TRANSFERASE 18 U/L (15-37); BILIRUBIN,TOTAL 0.4 MG/DL (0.2-1.0)
--- NOTE | 2018-08-18 15:24 | NUR ---
ED Nurse Note: ERMD at bedside informing pt about admit plan.
--- NOTE | 2018-08-18 16:26 | Emergency Room Report ---
History of Present Illness General Chief Complaint: Nausea Source: Patient Present Illness HPI Patient presents emergency department today complaint of rectal pain abdominal discomfort. Patient states that she is taking a lot of Pepto-Bismol but symptoms do not appear to be improving. She denies any diarrhea. Symptoms noted to moderate to severe. She states in the past when she has had these she is having infections. No other complaints are noted. No other modifying factors. No other associated signs and symptoms. No other complaints were noted. Symptoms have been going on for couple days. Allergies: Coded Allergies: No Known Allergies (Unverified , 05/04/18) Patient History PMH Narrative Acute renal insufficiency Past Surgical History: none Pertinent Family History: none Social History: Denies: smoking, alcohol use, drug use Now: No Reviewed Nursing Documentation: PMH: Agreed; PSxH: Agreed Nursing Documentation-PMH Past Medical History: No Stated History Hx Cardiac Problems: No Hx Cancer: No Hx Gastrointestinal Problems: No Hx Neurological Problems: No Review of Systems All Other Systems: negative except mentioned in HPI Physical Exam Vital Signs Date Time Temp Pulse Resp B/P (MAP) Pulse Ox O2 Delivery O2 Flow Rate FiO2 08/18/18 13:18 98.4 67 20 155/81 (105) 95 Room Air Sp02 EP Interpretation: reviewed, normal General Appearance: normal inspection, well appearing, no apparent distress, alert Head: atraumatic Eyes: bilateral eye normal inspection ENT: normal ENT inspection, hearing grossly normal, normal voice Neck: normal inspection, full range of motion, supple, no bony tend Respiratory: normal inspection, lungs clear, normal breath sounds, no respiratory distress, no retraction, no wheezing Cardiovascular #1: regular rate, rhythm, no edema Gastrointestinal: normal inspection, normal bowel sounds, soft, no guarding, no hernia, tenderness - Epigastric Rectal: normal exam, normal rectal tone Genitourinary: no CVA tenderness Musculoskeletal: normal inspection, back normal, normal range of motion Neurologic: normal inspection, alert, responsive, speech normal Psychiatric: normal inspection, judgement/insight normal, mood/affect normal Medical Decision Making Diagnostic Impression: Primary Impression: Rectal pain Additional Impression: Pancreatitis ER Course Patient presents emergency department today complaint rectal pain and abdominal discomfort. Differential considerations include colitis, diverticulitis, hemorrhoids, abscess, pancreatitis just to name few. Given the severity of the patient's presentation I felt this is a highly complex patient. This patient required extensive workup. Patient's laboratory work-up shows a significantly elevated lipase level. Because of his presentation I felt that it is atypical and that patient likely will require further work-up and admission. Case was discussed with Dr. Corral. Patient is stable for transfer patient will be transferred as patient is capitated to [place]. Labs Test 08/18/18 13:50 White Blood Count 8.6 K/UL (4.8-10.8) Red Blood Count 3.86 M/UL (4.20-5.40) Hemoglobin 12.2 G/DL (12.0-16.0) Hematocrit 37.1 % (37.0-47.0) Mean Corpuscular Volume 96 FL (80-99) Mean Corpuscular Hemoglobin 31.6 PG (27.0-31.0) Mean Corpuscular Hemoglobin Concent 32.9 G/DL (32.0-36.0) Red Cell Distribution Width 12.5 % (11.6-14.8) Platelet Count 252 K/UL (150-450) Mean Platelet Volume 7.2 FL (6.5-10.1) Neutrophils (%) (Auto) 75.1 % (45.0-75.0) Lymphocytes (%) (Auto) 17.3 % (20.0-45.0) Monocytes (%) (Auto) 6.1 % (1.0-10.0) Eosinophils (%) (Auto) 0.4 % (0.0-3.0) Basophils (%) (Auto) 1.1 % (0.0-2.0) Urine Color Pale yellow Urine Appearance Clear Urine pH 6 (4.5-8.0) Urine Specific [place] 1.025 (1.005-1.035) Urine Protein 1+ (NEGATIVE) Urine Glucose (UA) Negative (NEGATIVE) Urine Ketones Negative (NEGATIVE) Urine Blood 5+ (NEGATIVE) Urine Nitrite Negative (NEGATIVE) Urine Bilirubin Negative (NEGATIVE) Urine Urobilinogen Normal MG/DL (0.0-1.0) Urine Leukocyte Esterase Negative (NEGATIVE) Urine RBC 20-30 /HPF (0 - 2) Urine WBC 0-2 /HPF (0 - 2) Urine Squamous Epithelial Cells Few /LPF (NONE/OCC) Urine Bacteria Few /HPF (NONE) Urine HCG, Qualitative Negative (NEGATIVE) Sodium Level 143 MMOL/L (136-145) Potassium Level 3.4 MMOL/L (3.5-5.1) Chloride Level 105 MMOL/L (98-107) Carbon Dioxide Level 26 MMOL/L (21-32) Anion Gap 12 mmol/L (5-15) Blood Urea Nitrogen 14 mg/dL (7-18) Creatinine 0.7 MG/DL (0.55-1.30) Estimat Glomerular Filtration Rate > 60 mL/min (>60) Glucose Level 152 MG/DL (74-106) Calcium Level 9.5 MG/DL (8.5-10.1) Total Bilirubin 0.4 MG/DL (0.2-1.0) Aspartate Amino Transf (AST/SGOT) 18 U/L (15-37) Alanine Aminotransferase (ALT/SGPT) 32 U/L (12-78) Alkaline Phosphatase 88 U/L (46-116) Total Protein 8.0 G/DL (6.4-8.2) Albumin 3.8 G/DL (3.4-5.0) Globulin 4.2 g/dL Albumin/Globulin Ratio 0.9 (1.0-2.7) Lipase 858 U/L (73-393) Last Vital Signs Date Time Temp Pulse Resp B/P (MAP) Pulse Ox O2 Delivery O2 Flow Rate FiO2 08/18/18 13:57 98.4 88 20 155/81 95 Room Air Status: unchanged Disposition: XFER SHT-TRM HOSP Condition: Serious Referrals: NON PHYSICIAN (PCP) Nilay Stewart MD Aug 18, 2018 16:26
--- NOTE | 2018-08-18 16:30 | NUR ---
ED Nurse Note: US canceled by ERMD.
--- NOTE | 2018-08-18 17:00 | NUR ---
ED Nurse Note: Report given to Kamille from [facility].
[2018-08-18 17:50] VITALS: BP 139/82
--- NOTE | 2018-08-18 17:52 | NUR ---
ED Nurse Note: Transportation arrived and report given to EMS.
--- NOTE | 2018-08-18 17:59 | NUR ---
ED Nurse Note: pt left unit with 2 EMS in stable condition.
== END | disposition short-term general hospital (02) ==
LOC: EMR 15:30
DX: K85.90 Acute pancreatitis without necrosis or infection, unspecified (principal); K62.5 Hemorrhage of anus and rectum
CPT/HCPCS: 36415; 80053; 81003; 81025; 83690; 85025; 99285